=== PATIENT | female | born 1955 | race Caucasian/White ===

== ENCOUNTER 2021-04-24 11:27 | Observation (INO) ==
--- NOTE | 2021-03-25 14:48 | PAT Medication Instructions ---
Medication Instructions Date of Service March 25, 2021 Home Medications acetaminophen [Tylenol Arthritis] 650 mg PO DAILY atorvastatin [Lipitor] 40 mg PO PM escitalopram oxalate [Lexapro] 20 mg PO QAM furosemide [Lasix] 20 mg PO DAILY PRN levothyroxine 75 mcg PO QAM meloxicam 15 mg PO QAM metformin 500 mg PO BID aroneezndhop-Fs-ixuo-minerals [Multivitamin-Calcium and Iron] 1 tab PO QAM nitrofurantoin monohyd/m-cryst [Macrobid] 100 mg PO BID ropinirole [Requip] 0.5 mg PO PM turmeric 400 mg PO QAM STOP taking 2 weeks before surgery (or as soon as possible if surgery is within 2 weeks) turmeric 400 mg PO QAM DO NOT take the morning of surgery furosemide [Lasix] 20 mg PO DAILY PRN metformin 500 mg PO BID jfjsmnfqthlu-Di-fcbl-minerals [Multivitamin-Calcium and Iron] 1 tab PO QAM Take morning of surgery With a small sip of water, OTHERWISE NOTHING TO EAT OR DRINK AFTER MIDNIGHT: acetaminophen [Tylenol Arthritis] 650 mg PO DAILY(okay to take up to 4 hours prior to surgery if needed) escitalopram oxalate [Lexapro] 20 mg PO QAM levothyroxine 75 mcg PO QAM nitrofurantoin monohyd/m-cryst [Macrobid] 100 mg PO BID Take evening before surgery atorvastatin [Lipitor] 40 mg PO PM furosemide [Lasix] 20 mg PO DAILY PRN (if needed) metformin 500 mg PO BID nitrofurantoin monohyd/m-cryst [Macrobid] 100 mg PO BID ropinirole [Requip] 0.5 mg PO PM Other Notes If you have any questions please call us at [phone] or [phone] or [phone] or [phone]
--- NOTE | 2021-03-27 13:34 | Anesthesiology Consultation ---
Date of Service March 27, 2021 Assessment & Plan (1) Encounter for pre-operative examination: - COVID screening: Per assessment on 03/27: Travel screen negative, no known COVID-19 positive contacts or current COVID-19 related symptoms. Patient vaccinated. Surgeon arranging preop COVID testing. Awaiting results. - Check BSG AM DOS - S/P Right TKA (08/25/17): SAB at L3/L4 (x1 attempt) + PNB at [facility] Chart Review Chart Review: Acceptable Risk for Surgery and Patient seen in Pre Admission Testing Teaching & Discussion .npo History Surgery Operation Date: 04/24/21 07:00 Proposed Procedures p Left Total Knee Arthroplasty - Adonis Rowan MD Height/Weight Height: 5 ft 4 in Weight: 117.3 kg Allergies Allergy/AdvReac Type Severity Reaction Status Date / Time No Known Allergies Allergy Verified 03/24/21 09:50 Medications Home Medications Medication Instructions Recorded Confirmed Last Taken acetaminophen [Tylenol Arthritis] 650 mg PO DAILY 03/24/21 03/24/21 Unknown atorvastatin [Lipitor] 40 mg PO PM 03/24/21 03/24/21 Unknown escitalopram oxalate [Lexapro] 20 mg PO QAM 03/24/21 03/24/21 Unknown furosemide [Lasix] 20 mg PO DAILY PRN 03/24/21 03/24/21 Unknown levothyroxine 75 mcg PO QAM 03/24/21 03/24/21 Unknown meloxicam 15 mg PO QAM 03/24/21 03/24/21 Unknown metformin 500 mg PO BID 03/24/21 03/24/21 Unknown vcywwznsmwfy-Dg-mfzm-minerals 1 tab PO QAM 03/24/21 03/24/21 Unknown [Multivitamin-Calcium and Iron] nitrofurantoin monohyd/m-cryst 100 mg PO BID 03/24/21 03/24/21 Unknown [Macrobid] ropinirole [Requip] 0.5 mg PO PM 03/24/21 03/24/21 Unknown turmeric 400 mg PO QAM 03/24/21 03/24/21 Unknown Past Medical History Medical History (Updated 03/28/21 @ 08:28 by Jennifer Simental) Anxiety Depression Diabetes mellitus, type 2 NIDDM GERD (gastroesophageal reflux disease) Occasional Hyperlipidemia Hypothyroidism Morbid obesity Osteoarthritis Restless leg syndrome Sleep apnea CPAP (compliant) Uterine cancer s/p hysterectomy UTI (urinary tract infection) Recent Macrobid finished ~03/25 > symptoms resolved and preop UA 03/27 negative Exercise / Class Metabolic Activity II 4-5 Yardwork/Stairs/Walk up hill (one FS (no CP, no SOB)) Past Family History Family History Mother Diabetes Father Diabetes Brother Diabetes Sister Diabetes Past Surgical History Surgical History History of arthroscopy R/L knee History of colonoscopy History of hysterectomy History of tooth extraction History of total knee replacement Right TKA (08/25/17): SAB at L3/L4 (x1 attempt) + PNB at [facility] Past Anesthesia History No Hx of Anesthesia Complications and No Family Hx of Anesthesia Complications History of PONV No Hx of PONV and No Hx of Motion Sickness Social History Smoking Status: Never smoker Do You Dip or Chew Tobacco: No Hx Alcohol Use: No Hx Substance Use: No substance use type: does not use Review of Systems Patient denies chest pain, shortness of breath, dyspnea on exertion, fever, c hills, cough, wheezing, palpitations. Physical Exam Vital Signs VITALS BP 130/78 P 70 TEMP 98.9 SP02 95%RA RESP 18 PHYSICAL Full cervical extension range of motion. Full TMJ range of motion. TMD 3 finger breaths Mallampati Score 2 Dentition: missing molars, + root canal repair right lower molar Lungs: clear throughout to auscultation Cardiac: regular rate and rhythm, no murmurs noted Spine: normal Carotid arteries: negative bruit Extremities: no edema Lab Results Anesthesia Preop Results Results Anesthesia Widget: WBC 6.74 K/uL (4.8-10.8) 03/27/21 Hgb 13.4 g/dL (12.0-16.0) 03/27/21 Hct 40.1 % (37-47) 03/27/21 Plt 244 K/uL (130-400) 03/27/21 Na 141 mmol/L (136-145) 03/27/21 K 4.2 mmol/L (3.5-5.1) 03/27/21 Cl 109 mmol/L (98-107) H 03/27/21 CO2 26 mmol/L (21-32) 03/27/21 BUN 20 mg/dl (7-18) H 03/27/21 Creat 0.67 mg/dl (0.6-1.2) 03/27/21 Glucose Level 173 mg/dl (70-99) H 03/27/21 PT 9.8 Seconds (9.0-12.0) 03/27/21 PTT 24.2 Seconds (21.0-31.0) 03/27/21 INR 1.0 (0.9-1.1) 03/27/21 HA1c 6.5 % (4.5-5.6) H 03/27/21 Urine Color Yellow 03/27/21 Urine Appearance Clear (Clear) 03/27/21 Urine pH 5.0 (4.5-7.5) 03/27/21 Urine Specific Mccune 1.027 (1.000-1.030) 03/27/21 Urine Protein Negative (Negative) 03/27/21 Urine Glucose (UA) Negative (Negative) 03/27/21 Urine Ketones Trace (Negative) H 03/27/21 Urine Blood Negative (Negative) 03/27/21 Urine Nitrite Negative (Negative) 03/27/21 Urine Bilirubin Negative (Negative) 03/27/21 Urine Urobilinogen Negative (Negative) 03/27/21 Urine Leukocyte Esterase 1+ (Negative) H 03/27/21 Urine WBC (Auto) 5-10 /hpf (0-5) H 03/27/21 Urine RBC (Auto) 0-4 /hpf (0-4) 03/27/21 Urine Hyaline Casts (Auto) 1-5 /lpf (0-5) 03/27/21 Urine Epithelial Cells (Auto) >30 /lpf (0-5) H 03/27/21 Urine Bacteria (Auto) Negative (Negative) 03/27/21 Blood Type A Positive 03/27/21 Antibody Screen NEGATIVE 03/27/21 Testing Electrocardiogram Date: 03/27/21 Normal sinus rhythm at 69 bpm. Possible anterior infarct (cited on or before 07/27/2017 per 4th grade math teacher review) Chest X-Ray Date: 03/27/21 FINDINGS: The heart is borderline enlarged. There is no failure. There is no focal pulmonary consolidation. There are no pleural effusions. Degenerative changes are present within the spine.[ IMPRESSION: No active disease in the chest.
--- NOTE | 2021-04-23 20:46 | History & Physical Report ---
Date of Service April 23, 2021 Assessment & Plan (1) Primary osteoarthritis of left knee: Plan: Treatment options discussed. She has failed conservative measures. She would like to proceed with replacement. Risks, benefits and alternatives to surgery including but not limited to infection, DVT, pain, stiffness, need for revision surgery, damage to blood vessels, damage to nerves, PE, , were discussed with the patient and they wish to proceed. Plan on left total knee arthroplasty at [facility] scheduled for 04/24/21. Will plan on ASA 81mg BID x 1 mo post op, as well as HHPT post dsicharge. All questions answered. F/u post op. History of Present Illness Chief Complaint: Left knee pain Primary Care Provider: CITLALLI Trammell 65 year old female with PMHx significant for high cholesterol, anxiety, JANEL, DM2, hypothyroid, uterine Ca who presents with longstanding left knee pain. Hax hx of right knee replacement and has done well. Left knee pain interfering with her daily activities. She has failed conservative measures inlcluding anti- inflammatories and injections. She would like to proceed with knee replacement. Patient denies headaches, sweats, fevers, chills, double vision, blurred vision, cough, sore throat, dysphagia, chest pain, sob, wheezing, n/v/d/c, numbness, tingling, fatigue, urinary symptoms, mood disorders. ROS positive for left knee pain and stiffness. Allergies Allergy/AdvReac Type Severity Reaction Status Date / Time No Known Allergies Allergy Verified 03/24/21 09:50 Home Medications Medication Instructions Recorded Confirmed Type acetaminophen 650 mg 650 mg PO DAILY 03/24/21 03/24/21 History tablet,extended release atorvastatin 40 mg tablet (Lipitor) 40 mg PO PM 03/24/21 03/24/21 History escitalopram oxalate 20 mg tablet 20 mg PO QAM 03/24/21 03/24/21 History (Lexapro) furosemide 20 mg tablet (Lasix) 20 mg PO DAILY PRN 03/24/21 03/24/21 History levothyroxine 75 mcg tablet 75 mcg PO QAM 03/24/21 03/24/21 History meloxicam 15 mg tablet 15 mg PO QAM 03/24/21 03/24/21 History metformin 500 mg tablet 500 mg PO BID 03/24/21 03/24/21 History kjmhhoeajjcw-Hw-vnmi-minerals 1 tab PO QAM 03/24/21 03/24/21 History nitrofurantoin 100 mg PO BID 03/24/21 03/24/21 History monohydrate/macrocrystals 100 mg capsule (Macrobid) ropinirole 0.5 mg tablet 0.5 mg PO PM 03/24/21 03/24/21 History turmeric 400 mg capsule 400 mg PO QAM 03/24/21 03/24/21 History Past Med/Surg History Medical History (Updated 04/23/21 @ 20:45 by Dain Deluca) Anxiety Depression Diabetes mellitus, type 2 NIDDM GERD (gastroesophageal reflux disease) Occasional Hyperlipidemia Hypothyroidism Morbid obesity Osteoarthritis Restless leg syndrome Sleep apnea CPAP (compliant) Uterine cancer s/p hysterectomy UTI (urinary tract infection) Recent Macrobid finished ~03/25 > symptoms resolved and preop UA 03/27 negative Surgical History History of arthroscopy R/L knee History of colonoscopy History of hysterectomy History of tooth extraction History of total knee replacement Right TKA (08/25/17): SAB at L3/L4 (x1 attempt) + PNB at [facility] Family History Mother Diabetes Father Diabetes Brother Diabetes Sister Diabetes Social History Smoking Status: Never smoker Second Hand Exposure: No; Hx Alcohol Use: No Hx Substance Use: No Preferred Language: Maltese Communication Ability: Effective Shipwright Helper Required: No Beliefs That Will Affect Care: None Current Living Situation: Spouse Feels Safe at Home: Yes Assistive Devices: Glasses Review of Systems All systems reviewed & are unremarkable except as noted in HPI & below Physical Exam Constitutional: well developed and well nourished; no acute distress Eyes: PERRL, conjunctivae normal, anicteric sclerae ENMT: external ear and nose normal, oropharynx normal Neck: trachea midline, no thyromegaly Respiratory: normal respiratory effort, lungs clear to auscultation Cardiovascular: RRR, no murmur, no edema Musculoskeletal: Left knee: Varus alignment, mild effusion/ Tenderness diffusely with max tenderness medial joint line. Moderate crepitation. Positive Pierre's. Stable to valgus and varus stress. ROM 10-120 degrees. Skin: no rashes, warm and dry Neurologic: patellar DTR's 2+ bilat, sensation intact Psychiatric: A+Ox3, euthymic affect Results & Data ([facility]) Diagnostic Findings Left knee radiographs: X-rays of her left knee demonstrate that she has a varus knee. She has got medial subluxation of the femur on the tibia. She has tricompartmental osteophytes. She is bone on bone in the medial compartment with some bone loss on weightbearing flexion views.
[~2021-04-24 11:27] MED LIST: ACETAMINOPHEN 500 MG TAB PO SCH; BUPIVACAINE 0.5 % 5 MG/1 ML PF 10ML VIAL ONE; CeleBREX 200 MG CAP PO SCH; EPINEPHrine INJ 1 MG/ML AMP ONE; FAMOTIDINE 20 MG TAB PO SCH; GABAPENTIN 300 MG CAP PO SCH; LR 500ML BOLUS, THEN 15ML/HR IV SCH; METOCLOPRAMIDE HCL 10 MG TABLET PO SCH; ROPIVACAINE 0.5% 5 MG/ML 30 ML VIAL ONE; ROPIVACAINE 0.5% HCL/PF 150 MG, BUPIVACAINE 0.75% MPF 20 ML, EPINEPHrine 30MG/30ML (OR ... INSTIL SCH; TRANEXAMIC ACID 1,000 MG **IV Intra-op IV SCH; TRANEXAMIC ACID 1,000 MG **IV Pre-op IV SCH; ceFAZolin 2000MG 2,000 MG/15 ML SYR IV SCH
[2021-04-24] MEDS ORDERED: MIDAZOLAM HCL 1 MG/ML 2ML VIAL ONE (14:10)
[2021-04-24] MEDS ORDERED: ORTHO JOINT ANESTHETIC ONE (14:24)
--- NOTE | 2021-04-24 14:40 | History & Physical Bridge Note ---
Date of Service April 24, 2021 History & Physical Bridge Note I have examined the patient, reviewed the History & Physical and in the interval since the performance of the History & Physical I have noted the following changes of clinical significance: no changes noted
[2021-04-24] MEDS ORDERED: HYDROmorphone INJ 1 MG/ML SYRINGE IV PRN (15:09)
[2021-04-24] MEDS ORDERED: FLUMAZENIL 0.1 MG/1 ML 10 ML VIAL IV PRN (15:09)
[2021-04-24] MEDS ORDERED: PROMETHAZINE HCL 12.5 MG in SODIUM CHLORIDE 0.9% 50 ML IV PRN (15:09)
[2021-04-24] MEDS ORDERED: ATROPINE SULFATE 0.1 MG/ML 10ML SYR IV PRN (15:09)
[2021-04-24] MEDS ORDERED: NALOXONE HCL 0.4 MG/1 ML VIAL/CARP IV PRN ×2 (15:09→18:37)
[2021-04-24] MEDS ORDERED: fentaNYL citrate 100 MCG/2 ML VIAL IV PRN (15:09)
[2021-04-24] MEDS ORDERED: ePHEDrine sulfate 50 MG/ML AMP IV PRN (15:09)
[2021-04-24] MEDS ORDERED: ONDANSETRON INJ 2 MG/ML 2 ML VIAL IV PRN ×2 (15:09→18:37)
[2021-04-24] MEDS ORDERED: KETAMINE 50 MG/5 ML SYRINGE ONE (15:11)
[2021-04-24] MEDS ORDERED: LIDOCAINE 2% 2 ML VIAL/AMP(20MG/ML) INFIL ONE (15:11)
[2021-04-24] MEDS ORDERED: PROPOFOL IV EMULSION 10 MG/ML 20 ML VIAL IV ONE ×3 (15:11→16:12)
[2021-04-24] MEDS ORDERED: ONDANSETRON INJ 2 MG/ML 2 ML VIAL ONE (15:11)
[2021-04-24] MEDS ORDERED: PHENYLEPHRINE 100MCG/ML 5ML SYR ONE (16:36)
--- NOTE | 2021-04-24 17:27 | Operative Report ---
Post Operative Report Pre & Post Diagnosis Operation Date: 04/24/21 14:50 Pre-Op Diagnosis: Left knee unilateral Primary Osteoarthritis, obesity BMI 43.1 Post-Op Diagnosis: Left knee unilateral Primary Osteoarthritis, obesity BMI 43.1 I identified the patient and participated in the time-out.: Yes Procedure Operation Date: 04/24/21 14:50 Actual Procedures p Left Total Knee Arthroplasty(Left), increased difficulty BMI 43.1- Adonis Rowan MD Surgeon Adonis Rowan MD Security Representative Joshua PEÑALOZA Estimated Blood Loss 5 Findings Consistent with Post-Op Diagnosis Specimens Bone cuts Drains 2 Hemovac Anesthesia Type MAC Spinal Regional Complications none Disposition Disposition: Recovery Room Indications 65-year-old, progressive osteoarthritis left knee. Radiographs demonstrate she is hgtq-cy-dqqk medial compartment varus knee which also has moderate patellofemoral osteoarthritis. Patient has successful total knee replacement in her opposite knee in the past. Description of Procedure The patient was taken to the operating room and anesthetized under spinal MAC regional block. Patient was placed supine on the the operating table. A pneumatic tourniquet was placed about the left obese upper thigh. The knee exam demonstrated positive Elma exam no collateral instability 15 degree flexion contracture with flexion to 120 degrees. The involved leg was elevated exsanguinated with Esmarch bandage and the pneumatic tourniquet was raised to 350 millimeters mercury. A longitudinal incision was made across the anterior knee. Skin flaps were elevated. An incision was made into the medial retinaculum and extended up into the mid third of the quadriceps tendon and extended down to the tibial tubercle. Intra-articular findings demonstrated tricompartmental osteoarthritis [id number]-ba-[id number] medial compartment chronic ACL tear medial meniscus tear, advanced osteoarthritis patellofemoral joint with large patellofemoral osteophytes. The knee was exposed by excising cruciate ligaments and menisci. The infrapatellar fat pad was resected. The fat pad over the anterior femur at the upper aspect of the articular surface was resected for placement of the component in that area. A subperiosteal peel lateral release was performed around the patella The Ng [employer] Nephew journey 2.0 posterior stabilized total knee arthroplasty system was utilized for the procedure. The custom femoral cutting guide was pinned in position. The distal femoral cut was made. The size 6, 5 in 1 cutting block was placed. The anterior posterior and chamfer cuts were made. The knee was extended and a free hand cut technique was performed to the patella. The patella with was measured and the width was reproduced using a 35 symmetrical patella component. 3 drill holes are made for the patella component pegs. The tibia was then subluxed. The custom tibial cutting block was pinned in position and the proximal tibial cut was made with the oscillating saw. The preoperative plan suggested a size 4 tibia but this was downsized to a 3. The size 3 tibial trial was externally rotated in line with the tibial tubercle and pinned in position. The punch for the stem was used. The femoral trial was inserted and centered the notch cutting devices were used and the collet was placed. Some osteophytes removed in the posterior medial tibia plateau area and a large meniscus cyst was decompressed posterior medially and an abundant amount of gel material was evacuated. A medial and posterior medial release was performed to balance ligaments. Tibial trials were used for the insert. The size 11 trial gave balanced ligaments through full range of motion. Patella tracking was assessed with range of motion. The patella tracked centrally. The trials were removed. The Orthomix anesthetic cocktail was injected per protocol. The cut bone surfaces and soft tissue were copiously irrigated with pulsatile lavage saline solution. The final components were cemented with Simplex cement. The final components were Ng [employer] Nephew journey 2.0 size 6 left posterior stabilized femoral component, 3 left tibial component, size 11 polyethylene posterior stabilized insert, 35 symmetrical patella. While the cement cured the Betadine soak was used per protocol. When the cement cured the knee was copiously irrigated with pulsatile lavage saline solution. 2 drains were brought out laterally connected to Hemovac. The quadriceps tendon and medial retinaculum were closed with interrupted [id number] #1 Vicryl sutures. The knee was taken through full range of motion and repair was secure. The subcutaneous tissues were closed with 2-0 Vicryl sutures. The skin was closed with 3-0 strata fix and Dermabond and Prineo glue system. A Silverlon sterile dressing was applied. The tourniquet was let down and the patient had good capillary refill to the extremity. The patient tolerated the procedure well. My physician anesthesiologists' assistant Joshua PEÑALOZA assisted in the procedure including prepping draping leg positioning soft tissue retraction instrument management and assisted in the closure ,dressings application and will participate in postoperative care the patient. I attest to the content of the Intraoperative Record and any orders documented therein. Any exceptions are noted below.
--- NOTE | 2021-04-24 17:47 | Anesthesiology Progress Note ---
Date of Service April 24, 2021 Anesthesia Post Procedure Vital Signs Vital Signs: Temp Pulse Resp BP BP Pulse Ox 04/24/21 17:32 36.5 C 79 18 124/66 97 04/24/21 12:15 36.9 C 64 18 148/52 H 95 Pain Intensity Left Knee: Pain Intensity: 2 Transfer of Care Handoff Completed per policy Notes Mental Status: alert / awake / arousable Patient Amnestic to Procedure: Yes Nausea / Vomiting: adequately controlled Pain: adequately controlled Airway Patency, RR, SpO2: stable & adequate BP & HR: stable & adequate Hydration State: stable & adequate Neuraxial Anesthesia: was administered and sensory block is resolving Anesthetic Complications: no major complications apparent and Pt Satisfied with anesthetic care
--- NOTE | 2021-04-24 17:52 | XRay Report ---
XR knee LT 1 or 2V routine CLINICAL HISTORY: Postoperative evaluation. COMPARISON: Knee radiographs February 26, 2015. FINDINGS: Alignment of the total left knee arthroplasty is anatomic. There is no periprosthetic frac ture or unexpected radiopaque foreign body. There are surgical drains. IMPRESSION: Expected findings following total left knee arthroplasty. ACT 112: Negative or not required by law. Electronically signed by: Justo James M.D. 04/24/2021 5:51 PM
[2021-04-24] MEDS ORDERED: MAGNESIUM HYDROXIDE SUSP 30 ML UDC PO PRN (18:37)
[2021-04-24] MEDS ORDERED: METOCLOPRAMIDE HCL INJ 5 MG/ML 2 ML VIAL IV PRN (18:37)
[2021-04-24] MEDS ORDERED: FUROSEMIDE 20 MG TAB PO PRN (18:37)
[2021-04-24] MEDS ORDERED: HYDROmorphone INJ 0.5 MG/0.5 ML SYR IV PRN (18:37)
[2021-04-24] MEDS ORDERED: bisacodyL 10 MG SUPP PR PRN (18:37)
[2021-04-24] MEDS ORDERED: PHARMACY GLYCEMIC MGMT CONSULT PRN (18:37)
[2021-04-24] MEDS: SODIUM CHLORIDE 0.9% 1000ML 1,000 ML IV SCH (18:55)
--- NOTE | 2021-04-24 20:38 | Internal Medicine Consult Note ---
Date of Consultation April 24, 2021 Assessment & Plan (1) Primary osteoarthritis of left knee: (2) Right knee DJD: (3) RLS (restless legs syndrome): (4) JANEL (obstructive sleep apnea): (5) Depression: (6) Hypothyroidism: (7) Anxiety: (8) Obesity: (9) GERD (gastroesophageal reflux disease): Resume Post Op Care per Surgery Protocol CPAP Incentive Spirometry 10x per Hour Resume Relative Home Meds Where Appropriate PT/OT with appropriate fall precautions Transition to PO Pain control DVT Prophylaxis Per Surgery Protocol Monitor Daily Labs TARA jameson in am 04/25 History of Present Illness Reason for Consultation: Multiple Medical Problems Requesting Physician: Adonis Rowan MD Attending Physician: Adonis Rowan MD History of Present Illness 65-year-old female with a past medical history of diabetes, hypothyroidism, obstructive sleep apnea syndrome, degenerative disc disease, depression, uterine cancer, restless leg syndrome, obesity with a BMI of 43.1 and acid reflux disease who today had a total knee arthroplasty performed on her left knee. She started seeing Dr. Bishop back in 2013 when she had meniscal tears. In 2015 she had a right total knee arthroplasty. Her left knee was done today secondary to being [id number] she held off until she had better insurance. She had insurance through her and now she has Medicare. She had no injections no physical therapy she had increasing pain and occasionally the knee would buckle. Past medical historydiabetes, hypothyroidism, obesity with BMI 43, obstructive sleep apnea syndrome, degenerative disc disease, osteoarthritis, depression, uterine cancer, restless leg syndrome, GERD Past surgical historytotal hysterectomy, meniscal tear repair, right total knee arthroplasty Family history mother of breast cancer, father of a skin cancer, she has 1 brother with COPD and diabetes, she has 2 sisters one with breast cancer another one with multiple vague medical problems. She has no children. Socially she is , she is an [employer], currently not working, no tobacco drugs or alcohol. Allergies Allergy/AdvReac Type Severity Reaction Status Date / Time bupropion [From Wellbutrin] AdvReac Intermediate tearful/ Verified 04/24/21 12:05 crying, severe irritability Home Medications Medication Instructions Recorded Confirmed Type acetaminophen 650 mg 650 mg PO DAILY 03/24/21 04/24/21 History tablet,extended release atorvastatin 40 mg tablet (Lipitor) 40 mg PO PM 03/24/21 04/24/21 History escitalopram oxalate 20 mg tablet 20 mg PO QAM 03/24/21 04/24/21 History (Lexapro) furosemide 20 mg tablet (Lasix) 20 mg PO DAILY PRN 03/24/21 04/24/21 History levothyroxine 75 mcg tablet 75 mcg PO QAM 03/24/21 04/24/21 History meloxicam 15 mg tablet 15 mg PO QAM 03/24/21 04/24/21 History metformin 500 mg tablet 500 mg PO BID 03/24/21 04/24/21 History ymcviehhctpn-Uu-iqqu-minerals 1 tab PO QAM 03/24/21 04/24/21 History ropinirole 0.5 mg tablet 0.5 mg PO PM 03/24/21 04/24/21 History turmeric 400 mg capsule 400 mg PO QAM 03/24/21 04/24/21 History Calcium 600 + D(3) 1 tab PO QAM 04/24/21 04/24/21 History Patient History Medical History Anxiety Depression Diabetes mellitus, type 2 NIDDM GERD (gastroesophageal reflux disease) Occasional Hyperlipidemia Hypothyroidism Morbid obesity Osteoarthritis Restless leg syndrome Sleep apnea CPAP (compliant) Uterine cancer s/p hysterectomy UTI (urinary tract infection) Recent Macrobid finished ~03/25 > symptoms resolved and preop UA 03/27 negative Surgical History History of arthroscopy R/L knee History of colonoscopy History of hysterectomy History of tooth extraction History of total knee replacement Right TKA (08/25/17): SAB at L3/L4 (x1 attempt) + PNB at [facility] Family History Mother Diabetes Father Diabetes Brother Diabetes Sister Diabetes Social History Smoking Status: Never smoker Second Hand Exposure: No; Do You Dip or Chew Tobacco: No; Tobacco Cessation Education Requested by Patient: No Hx Alcohol Use: No Hx Substance Use: No Preferred Language: [place]an Communication Ability: Effective Lens Coater Required: No Beliefs That Will Affect Care: None Current Living Situation: Spouse Other Information That Helps Us Care for You: No Feels Safe at Home: Yes Safety Concerns: Feels Safe At This Time Assistive Devices: Glasses Review of Systems Review of Systems: ROS-No Headache, No Visual Changes, No Nausea, No Vomiting, No Fever, No Chills, No Neck Pain or Stiffness, No Chest Pain, No Palpitations, No SOB, No IQBAL, No Cough, No Sputum, No Wheezing, No Abdominal Pain, No Diarrhea, No Hematemesis, No Hemoptysis, No Unexpected Weight Loss, No Flank pain, No Melena, No Hematochezia, No Frequency, No Urgency, No Burning, No Hematuria, No Rashes, No Diaphoresis. Appetite is Normal, Sore L Knee Physical Exam Physical Exam: Physical Exam Gen-AAO x 3, NAD, Afebrile, Obese Head-NCAT, EOMI, PERRLA, Anicteric Sclera, No Posterior Pharyngeal Erythema Neck-Supple, No JVD, No Thyromegaly, No Masses, No LAD, No Bruits Lungs-Clear to Auscultation Bilaterally, No Rales, No Rhonchi, No Wheezing, No Crepitus Chest-No S4, +S1, +S2, No S3, No Murmurs, No Rubs, No Gallops, No Ectopy Abdomen-Soft, Bowel Sounds Present, Obese, Non Tender, Non Distended, No Hepatomegaly, No Splenomegaly, No Palpable Masses, No Rebound, No Rigidity, No Guarding Musculoskeletal-Full Range of Motion x 3, L knee not assessed, No CVAT Extremities-No Cyanosis, No Clubbing, L Knee Iced, +SCDs Nuero-Cranial Nerves II-XII grossly intact, Motor WNL, DTRs WNL, Strength WNL, Non Focal Psych-Normal Mood Results & Data ([facility]) Vital Signs (Past 12 Hours) Vital Signs Temp Pulse Resp BP BP Pulse Ox 04/24/21 19:15 36.6 C 61 18 124/74 95 04/24/21 18:20 36.9 C 66 18 110/68 97 04/24/21 18:10 69 16 113/61 94 04/24/21 18:00 36.3 C L 65 16 118/53 L 94 04/24/21 17:50 70 24 122/63 94 04/24/21 17:40 72 20 124/63 96 07/29/21 17:32 36.5 C 79 18 124/66 97 04/24/21 12:15 36.9 C 64 18 148/52 H 95 Laboratory Results Current Diagnoses Unilateral primary osteoarthritis, left knee (04/24/21) Encounter for other preprocedural examination (04/24/21) Allergies bupropion [From Wellbutrin] Adverse Reaction (Intermediate, Verified 04/24/21 12:05) tearful/ crying, severe irritability Height/Weight/Isolation Height 5 ft 4 in Weight 114 kg
[2021-04-24] MEDS: ASPIRIN 81 MG ECTAB PO SCH (20:44)
[2021-04-24] MEDS: ATORVASTATIN 40 MG TAB PO SCH (20:45)
[2021-04-24] MEDS: CeleBREX 200 MG CAP PO SCH (20:45)
[2021-04-24] MEDS: DOCUSATE SODIUM 100 MG CAP PO SCH (20:45)
[2021-04-24] MEDS: SENNA 8.6 MG TAB PO SCH (20:46)
[2021-04-24] MEDS: rOPINIRole HCL 0.25 MG TABLET PO SCH (20:46)
[2021-04-24] MEDS: INSULIN ASPART 100 UNITS/ML 3 ML PEN SC SCH (20:47)
[2021-04-24] MEDS: ACETAMINOPHEN 500 MG TAB PO SCH (22:30)
[2021-04-24] MEDS: ceFAZolin 2000MG 2,000 MG/15 ML SYR IV SCH (22:31)
[2021-04-24] MEDS: oxyCODONE HCL IR 5 MG TAB (IMMEDIATE RELEASE) PO PRN (22:32)
[2021-04-25] MEDS ORDERED: INSULIN ASPART 100 UNITS/ML 3 ML PEN SC SCH
[2021-04-25] MEDS: oxyCODONE HCL IR 5 MG TAB (IMMEDIATE RELEASE) PO PRN ×5 (04:24→17:26)
[2021-04-25] MEDS: ACETAMINOPHEN 500 MG TAB PO SCH ×3 (05:09→21:24)
[2021-04-25] MEDS: SODIUM CHLORIDE 0.9% 1000ML 1,000 ML IV SCH (05:10)
[2021-04-25] MEDS: LEVOTHYROXINE SODIUM 75 MCG TABLET PO SCH (05:10)
[2021-04-25 06:39] LABS: Hematocrit (blood only) 36.1 % (37-47); Hemoglobin 11.7 g/dL (12.0-16.0); Mean Corpuscular Hemoglobin 30.5 pg (25-34); Mean Corpuscular Hgb Conc 32.4 g/dL (32-36); Mean Platelet Volume 9.4 fL (7.4-10.4); Platelet Count 228 K/uL (130-400); RDW Coefficient of Variation 13.6 % (11.5-14.5); RDW Standard Deviation 46.8 fL (36.4-46.3); Red Blood Count 3.84 M/uL (4.2-5.4); White Blood Count 9.16 K/uL (4.8-10.8)
[2021-04-25 07:05] LABS: BUN Creatinine Ratio 25.2 (10-20); Calcium 8.2 mg/dl (8.5-10.1); Creatinine Clr Calc Pharmacy 102.1 ml/min; Est GFR (African American) 106.4 ml/min; Est GFR (Non-African American) 91.8 ml/min; Potassium 4.3 mmol/L (3.5-5.1)
[2021-04-25] MEDS ORDERED: KETOROLAC TROMETHAMINE 15 MG/ML VIAL IV ONE (07:28)
--- NOTE | 2021-04-25 07:31 | Orthopedic Progress Note ---
Date of Service April 25, 2021 Assessment & Plan (1) Status post total knee replacement, left: Plan: POD#1 Left TKA -PT/OT -Pain management as written -DVT prophylaxis-SCDs, TEDs, ASA 81mg BID -Am labs-hemogobin at 11.7 from 13.4 this morning due to surgical loss/dil utional effect -D/C planning-home with home health PT when stable and pain better controlled, discharge likey tomorrow Admission and Anticipated Discharge Date Admission Date: April 24, 2021 Subjective POD#1 left TKA. Patient having lot of pain in knee, states having more pain this time than with her other knee replacement. No other complaints, denies chest pain, sob, dizziness, fever, chills, n/v/d Review of Systems Review of Systems: All systems reviewed & are unremarkable except as noted in Subjective Physical Exam Physical Exam: Dressing to left knee is c/d/i, hemovac in place. No calf tenderness. Toes mobile with good dorsiflexion. Distally n/v status and sensation intact. Able to do a SLR Constitutional: well developed and well nourished; no acute distress Results & Data ([facility]) Vital Signs (Past 12 Hours) Vital Signs Temp Pulse Resp BP Pulse Ox 04/25/21 04:01 36.8 C 59 L 18 111/70 95 04/24/21 21:32 36.7 C 61 18 120/73 93 04/24/21 20:25 36.5 C 60 14 105/67 97 Laboratory Results Lab Results 04/24/21 04/24/21 04/24/21 Range/Units 11:56 11:56 11:58 WBC (4.8-10.8) K/uL RBC (4.2-5.4) M/uL Hgb (12.0-16.0) g/dL Hct (37-47) % MCV (80-100) fL MCH (25-34) pg MCHC (32-36) g/dL RDW Std Deviation (36.4-46.3) fL RDW Coeff of Sue (11.5-14.5) % Plt Count (130-400) K/uL MPV (7.4-10.4) fL Sodium (136-145) mmol/L Potassium (3.5-5.1) mmol/L Chloride (98-107) mmol/L Carbon Dioxide (21-32) mmol/L Anion Gap (3-11) BUN (7-18) mg/dl Creatinine (0.6-1.2) mg/dl Est Cr Clr Drug Dosing ml/min Est GFR ( Amer) ml/min Est GFR (Non-Af Amer) ml/min BUN/Creatinine Ratio (10-20) Glucose (70-99) mg/dl POC Glucose 122 H (70-99) mg/dl Calcium (8.5-10.1) mg/dl COVID-19 Eval [facility] SARS-CoV-2, RNA, NAAT NEGATIVE (NEGATIVE) 04/24/21 04/24/21 04/24/21 Range/Units 17:34 19:51 23:55 WBC (4.8-10.8) K/uL RBC (4.2-5.4) M/uL Hgb (12.0-16.0) g/dL Hct (37-47) % MCV (80-100) fL MCH (25-34) pg MCHC (32-36) g/dL RDW Std Deviation (36.4-46.3) fL RDW Coeff of Sue (11.5-14.5) % Plt Count (130-400) K/uL MPV (7.4-10.4) fL Sodium (136-145) mmol/L Potassium (3.5-5.1) mmol/L Chloride (98-107) mmol/L Carbon Dioxide (21-32) mmol/L Anion Gap (3-11) BUN (7-18) mg/dl Creatinine (0.6-1.2) mg/dl Est Cr Clr Drug Dosing ml/min Est GFR ( Amer) ml/min Est GFR (Non-Af Amer) ml/min BUN/Creatinine Ratio (10-20) Glucose (70-99) mg/dl POC Glucose 102 H 134 H 126 H (70-99) mg/dl Calcium (8.5-10.1) mg/dl COVID-19 Eval Order SARS-CoV-2, RNA, NAAT (NEGATIVE) 04/25/21 04/25/21 Range/Units 05:37 05:37 WBC 9.16 (4.8-10.8) K/uL RBC 3.84 L (4.2-5.4) M/uL Hgb 11.7 L (12.0-16.0) g/dL Hct 36.1 L (37-47) % MCV 94.0 (80-100) fL MCH 30.5 (25-34) pg MCHC 32.4 (32-36) g/dL RDW Std Deviation 46.8 H (36.4-46.3) fL RDW Coeff of Sue 13.6 (11.5-14.5) % Plt Count 228 (130-400) K/uL MPV 9.4 (7.4-10.4) fL Sodium 140 (136-145) mmol/L Potassium 4.3 (3.5-5.1) mmol/L Chloride 108 H (98-107) mmol/L Carbon Dioxide 29 (21-32) mmol/L Anion Gap 3.0 (3-11) BUN 17 (7-18) mg/dl Creatinine 0.68 (0.6-1.2) mg/dl Est Cr Clr Drug Dosing 102.1 ml/min Est GFR ( Amer) 106.4 ml/min Est GFR (Non-Af Amer) 91.8 ml/min BUN/Creatinine Ratio 25.2 H (10-20) Glucose 149 H (70-99) mg/dl POC Glucose (70-99) mg/dl Calcium 8.2 L (8.5-10.1) mg/dl COVID-19 Eval Order SARS-CoV-2, RNA, NAAT (NEGATIVE)
[2021-04-25] MEDS: ceFAZolin 2000MG 2,000 MG/15 ML SYR IV SCH (08:06)
[2021-04-25] MEDS: ASPIRIN 81 MG ECTAB PO SCH ×2 (08:07→21:22)
[2021-04-25] MEDS: ESCITALOPRAM OXALATE 20 MG TAB PO SCH (08:07)
[2021-04-25] MEDS: MULTIVITAMIN TAB PO SCH (08:07)
[2021-04-25] MEDS: DOCUSATE SODIUM 100 MG CAP PO SCH ×2 (08:07→21:23)
[2021-04-25] MEDS: CeleBREX 200 MG CAP PO SCH ×2 (08:08→21:23)
[2021-04-25] MEDS: CALCIUM 600MG + VIT D 400 IU TAB PO SCH (08:08)
[2021-04-25] MEDS: INSULIN ASPART 100 UNITS/ML 3 ML PEN SC SCH ×4 (08:47→21:25)
[2021-04-25] MEDS ORDERED: MULTIVITAMIN CA IRON MINERALS PO SCH (09:00)
--- NOTE | 2021-04-25 14:08 | Pharmacy Report ---
Pharmacy Glycemic Short Note 2 - Date of Service April 25, 2021 - Glycemic Short BSG Results (Last 24 hours): 04/24/21 04/24/21 04/24/21 17:34 19:51 23:55 Glucose POC Glucose 102 H 134 H 126 H 04/25/21 04/25/21 04/25/21 05:37 07:52 12:09 Glucose 149 H POC Glucose 145 H 153 H OUTPATIENT ANTIDIABETIC REGIMEN: * Metformin 500 mg QAM, 1000 mg with dinner ASSESSMENT: * 65 y/o F admitted for L TKA yesterday. PMH significant for Type 2 diabetes managed at home on oral Metformin * Metformin was held yesterday since oral agents are not recommended for inpatient use d/t drug interactions, changing PO intake, and difficulty titrating for acute hyper/hypoglycemia. ADA recommends re-initiating outpatient oral agents 1-2 days prior to discharge if/when appropriate if they were held on admission. * Weight based insulin dosing was initiated yesterday and titrated based on BSG trends. * Pt received 4 units of bolus insulin total yesterday. * Fasting BSG today was 145 mg/dl. Novolog CF was tightened slightly this AM. * Patient has been her meals and renal function stable. Therefore, oral Metformin resumed with evening meal tonight. * Spoke to pt over the phone. She said she takes 1000 mg with evening meal and 500 mg in the morning. She was supposed to take 1000 mg BID but had diarrhea on the higher dose. * Changed Metformin to the extended release (ER) form for better GI tolerance. PLAN FOR INPATIENT GLYCEMIC CONTROL: * Metformin ER 500 mg QAM, ER 1000 mg daily with dinner. * Basal insulin * none * Bolus insulin: tightened CF and removed CR with Metformin resumption * NovoLog per scale ACHS or Q6hrs while NPO * Goal Range: Low 110 mg/dL - High 140 mg/dL * Correction Factor: 25 mg/dL/unit * Nutritional / Prandial insulin per carb ratio of 1 unit per __ grams CHO consumed PLAN FOR DISCHARGE: * HbA1c = 6.5% * Goal A1c is less than 7%, so this shows adequate control of diabetes. * Resume Metformin on discharge. Patient reported diarrhea from higher dose of 1000 mg. * Recommend switch to the ER formulation of Metformin for better GI tolerance. * Metformin ER 500 mg daily with breakfast and ER 1000 mg daily with dinner.
[2021-04-25] MEDS ORDERED: COUGH DROP (SUGAR FREE) LOZ 24 LOZ/1 BOX BUCCAL PRN (14:15)
[2021-04-25] MEDS ORDERED: metFORMIN HCL ER 500 MG TABCR PO SCH (16:30)
--- NOTE | 2021-04-25 16:30 | Hospitalist Progress Note ---
Date of Service April 25, 2021 Assessment & Plan (1) Primary osteoarthritis of left knee: Plan: S/P left total knee arthroplasty by Dr. Rowan POD #1 Postoperative blood loss anemia, partly dilutional No indication for blood transfusion currently Monitor CBC Continue incentive spirometry PT OT Pain control On aspirin twice daily for DVT prophylaxis Continue bowel regimen to prevent constipation Hypothyroidism Continue levothyroxine Hyperlipidemia Continue Lipitor Mood disorder Continue home medications DM II Hold Metformin while hospitalized Continue insulin therapy Monitor BGs Restless leg syndrome Continue ropinirole DVT Px: As per Primary Team CODE STATUS Full code (2) Right knee DJD: (3) RLS (restless legs syndrome): (4) JANEL (obstructive sleep apnea): (5) Depression: (6) Hypothyroidism: (7) Anxiety: (8) Obesity: (9) GERD (gastroesophageal reflux disease): Plan: Resume Post Op Care per Surgery Protocol CPAP Incentive Spirometry 10x per Hour Resume Relative Home Meds Where Appropriate PT/OT with appropriate fall precautions Transition to PO Pain control DVT Prophylaxis Per Surgery Protocol Monitor Daily Labs TARA jameson in am 04/25 Admission and Anticipated Discharge Date Admission Date: April 24, 2021 Subjective Patient is seen and examined bedside Reports knee pain at surgical site is controlled Had physical therapy earlier today + Flatus no BM yet Denies chest pain, dyspnea, dizziness, nausea, abd pain Review of Systems Review of Systems: All systems reviewed & are unremarkable except as noted in Subjective Physical Exam Physical Exam: Physical Exam: Vitals signs as noted above General Appearance:Obese, no apparent distress Head: normocephalic, Atraumatic Eyes: normal inspection, EOMI Neck: supple, Trachea midline Respiratory/Chest: Normal breath sounds, CTA, No accessory muscle use Cardiovascular: S1, S2, No murmur Abdomen/GI:Soft, Non tender, Bowel sounds present Extremities/Musculoskeletal:normal inspection, Left knee surgical site in dressing Neurologic/Psych:AAOX3, grossly no focal neurological deficits Skin: normal color, warm Results & Data Results & Data ([facility]) Vital Signs (Past 12 Hours) Vital Signs Temp Pulse Resp BP Pulse Ox 04/25/21 11:01 36.5 C 70 16 108/65 91 04/25/21 08:25 37.1 C 59 L 16 126/70 96 Laboratory Results Short CBC 04/25/21 Range/Units 05:37 WBC 9.16 (4.8-10.8) K/uL Hgb 11.7 L (12.0-16.0) g/dL Hct 36.1 L (37-47) % Plt Count 228 (130-400) K/uL [facility] 04/25/21 05:37 Sodium 140 Potassium 4.3 Chloride 108 H Carbon Dioxide 29 BUN 17 Creatinine 0.68 Glucose 149 H Calcium 8.2 L
[2021-04-25] MEDS: ATORVASTATIN 40 MG TAB PO SCH (21:23)
[2021-04-25] MEDS: SENNA 8.6 MG TAB PO SCH (21:24)
[2021-04-25] MEDS: rOPINIRole HCL 0.25 MG TABLET PO SCH (21:24)
[2021-04-25 23:11] VITALS: TEMP 98.2; O2SAT 93
[2021-04-26] MEDS: oxyCODONE HCL IR 5 MG TAB (IMMEDIATE RELEASE) PO PRN ×3 (01:27→12:27)
[2021-04-26] MEDS: ACETAMINOPHEN 500 MG TAB PO SCH (05:43)
[2021-04-26] MEDS: LEVOTHYROXINE SODIUM 75 MCG TABLET PO SCH (05:43)
[2021-04-26 06:39] VITALS: BP 137/81; PULSE 62
[2021-04-26 06:47] LABS: Hematocrit (blood only) 33.6 % (37-47); Mean Corpuscular Hemoglobin 30.3 pg (25-34); Mean Corpuscular Hgb Conc 32.7 g/dL (32-36); Mean Corpuscular Volume 92.6 fL (80-100); Mean Platelet Volume 9.2 fL (7.4-10.4); Platelet Count 196 K/uL (130-400); RDW Coefficient of Variation 13.4 % (11.5-14.5); RDW Standard Deviation 45.9 fL (36.4-46.3); Red Blood Count 3.63 M/uL (4.2-5.4)
[2021-04-26 07:15] LABS: BUN Creatinine Ratio 24.7 (10-20); Calcium 8.4 mg/dl (8.5-10.1); Creatinine Clr Calc Pharmacy 147.7 ml/min; Est GFR (African American) 120.1 ml/min; Est GFR (Non-African American) 103.7 ml/min; Potassium 3.9 mmol/L (3.5-5.1)
[2021-04-26] MEDS ORDERED: metFORMIN HCL ER 500 MG TABCR PO SCH (07:30)
[2021-04-26] MEDS: INSULIN ASPART 100 UNITS/ML 3 ML PEN SC SCH (08:06)
[2021-04-26] MEDS: CALCIUM 600MG + VIT D 400 IU TAB PO SCH (08:11)
[2021-04-26] MEDS: CeleBREX 200 MG CAP PO SCH (08:11)
[2021-04-26] MEDS: DOCUSATE SODIUM 100 MG CAP PO SCH (08:11)
[2021-04-26] MEDS: ASPIRIN 81 MG ECTAB PO SCH (08:11)
[2021-04-26] MEDS: ESCITALOPRAM OXALATE 20 MG TAB PO SCH (08:11)
[2021-04-26] MEDS: MULTIVITAMIN TAB PO SCH (08:12)
--- NOTE | 2021-04-26 10:35 | Pharmacy Report ---
Pharmacy Glycemic Short Note 2 - Date of Service April 26, 2021 - Glycemic Short BSG Results (Last 24 hours): 04/25/21 04/25/21 04/25/21 12:09 17:00 20:36 Glucose POC Glucose 153 H 135 H 190 H 04/26/21 04/26/21 06:05 06:37 Glucose 156 H POC Glucose 158 H OUTPATIENT ANTIDIABETIC REGIMEN: * Metformin 500 mg QAM, 1000 mg with dinner ASSESSMENT: 04/26/2021 * BSGs yesterday were [phone] mg/dL. Fasting today is 158 mg/dL. * Post-prandially BSGs increased after carbohydrate removed. * Reinstate carbohydrate ratio. BACKGROUND * 65 y/o F admitted for L TKA yesterday. PMH significant for Type 2 diabetes managed at home on oral Metformin * Metformin was held yesterday since oral agents are not recommended for inpatient use d/t drug interactions, changing PO intake, and difficulty titrating for acute hyper/hypoglycemia. ADA recommends re-initiating outpatient oral agents 1-2 days prior to discharge if/when appropriate if they were held on admission. * Weight based insulin dosing was initiated yesterday and titrated based on BSG trends. * Pt received 4 units of bolus insulin total yesterday. * Fasting BSG today was 145 mg/dl. Novolog CF was tightened slightly this AM. * Patient has been her meals and renal function stable. Therefore, oral Metformin resumed with evening meal tonight. * Spoke to pt over the phone. She said she takes 1000 mg with evening meal and 500 mg in the morning. She was supposed to take 1000 mg BID but had diarrhea on the higher dose. * Changed Metformin to the extended release (ER) form for better GI tolerance. PLAN FOR INPATIENT GLYCEMIC CONTROL: * Metformin ER 500 mg QAM, ER 1000 mg daily with dinner. * Basal insulin * none * Bolus insulin: tightened CF and removed CR with Metformin resumption * NovoLog per scale ACHS or Q6hrs while NPO * Goal Range: Low 110 mg/dL - High 140 mg/dL * Correction Factor: 25 mg/dL/unit * Nutritional / Prandial insulin per carb ratio of 1 unit per 8 grams CHO consumed PLAN FOR DISCHARGE: * HbA1c = 6.5% * Goal A1c is less than 7%, so this shows adequate control of diabetes. * Resume Metformin on discharge. Patient reported diarrhea from higher dose of 1000 mg. * Recommend switch to the ER formulation of Metformin for better GI tolerance. * Metformin ER 500 mg daily with breakfast and ER 1000 mg daily with dinner.
--- NOTE | 2021-04-26 11:23 | Orthopedic Progress Note ---
Date of Service April 26, 2021 Assessment & Plan (1) Status post total knee replacement, left: Plan: POD#2 Left TKA -PT/OT -Pain management as written -DVT prophylaxis-SCDs, TEDs, ASA 81mg BID -D/C planning-home with home health PT today Admission and Anticipated Discharge Date Admission Date: April 24, 2021 Subjective Patient is seen and examined bedside Reports knee pain at surgical site is controlled just finishing breakfast Denies chest pain, dyspnea, dizziness, nausea, abd pain Physical Exam Physical Exam: Dressing to left knee is c/d/i. No calf tenderness. Toes mobile with good dorsiflexion. Distally n/v status and sensation intact. Able to do a SLR Results & Data ([facility]) Vital Signs (Past 12 Hours) Vital Signs Temp Pulse Resp BP Pulse Ox 04/26/21 06:39 36.8 C 62 18 137/81 93
--- NOTE | 2021-04-26 17:36 | Hospitalist Progress Note ---
Date of Service April 26, 2021 Assessment & Plan (1) Primary osteoarthritis of left knee: Plan: S/P left total knee arthroplasty by Dr. Rowan POD #2 Postoperative blood loss anemia, partly dilutional No indication for blood transfusion currently Monitor CBC Continue incentive spirometry PT OT Pain control On aspirin twice daily for DVT prophylaxis Continue bowel regimen to prevent constipation Advised to follow with PCP in 1 week upon discharge Continue bowel regimen upon discharge Hypothyroidism Continue levothyroxine Hyperlipidemia Continue Lipitor Mood disorder Continue home medications DM II Hold Metformin while hospitalized Continue insulin therapy Monitor BGs Restless leg syndrome Continue ropinirole DVT Px: As per Primary Team CODE STATUS Full code (2) Right knee DJD: (3) RLS (restless legs syndrome): (4) JANEL (obstructive sleep apnea): (5) Depression: (6) Hypothyroidism: (7) Anxiety: (8) Obesity: (9) GERD (gastroesophageal reflux disease): Plan: Resume Post Op Care per Surgery Protocol CPAP Incentive Spirometry 10x per Hour Resume Relative Home Meds Where Appropriate PT/OT with appropriate fall precautions Transition to PO Pain control DVT Prophylaxis Per Surgery Protocol Monitor Daily Labs TARA jameson in am 04/25 Admission and Anticipated Discharge Date Admission Date: April 24, 2021 Subjective Patient is seen and examined bedside Doing much better today Leg pain is controlled Sitting in chair comfortably Plan to be discharged home today Denies chest pain, dyspnea, dizziness, nausea, abd pain Review of Systems Review of Systems: All systems reviewed & are unremarkable except as noted in Subjective Physical Exam Physical Exam: Physical Exam: Vitals signs as noted above General Appearance:Obese, no apparent distress Head: normocephalic, Atraumatic Eyes: normal inspection, EOMI Neck: supple, Trachea midline Respiratory/Chest: Normal breath sounds, CTA, No accessory muscle use Cardiovascular: S1, S2, No murmur Abdomen/GI:Soft, Non tender, Bowel sounds present Extremities/Musculoskeletal:normal inspection, Left knee surgical site in dressing Neurologic/Psych:AAOX3, grossly no focal neurological deficits Skin: normal color, warm Results & Data Results & Data ([facility]) Vital Signs (Past 12 Hours) Vital Signs Temp Pulse Resp BP Pulse Ox 04/26/21 11:32 36.8 C 62 18 137/81 93 04/26/21 06:39 36.8 C 62 18 137/81 93 Laboratory Results Short CBC 04/26/21 Range/Units 06:05 WBC 7.60 (4.8-10.8) K/uL Hgb 11.0 L (12.0-16.0) g/dL Hct 33.6 L (37-47) % Plt Count 196 (130-400) K/uL BMP 04/26/21 06:05 Sodium 138 Potassium 3.9 Chloride 106 Carbon Dioxide 28 BUN 12 Creatinine 0.47 L Glucose 156 H Calcium 8.4 L
--- NOTE | 2021-04-26 22:08 | Discharge Summary ---
Date of Service April 26, 2021 Admission HPI Per Admitting Provider 65 year old female with PMHx significant for high cholesterol, anxiety, JANEL, DM2, hypothyroid, uterine Ca who presents with longstanding left knee pain. Hax hx of right knee replacement and has done well. Left knee pain interfering with her daily activities. She has failed conservative measures inlcluding anti- inflammatories and injections. She would like to proceed with knee replacement. Patient denies headaches, sweats, fevers, chills, double vision, blurred vision, cough, sore throat, dysphagia, chest pain, sob, wheezing, n/v/d/c, numbness, tingling, fatigue, urinary symptoms, mood disorders. ROS positive for left knee pain and stiffness. Admission Exam Per Admitting Provider Constitutional: well developed and well nourished; no acute distress Eyes: PERRL, conjunctivae normal, anicteric sclerae ENMT: external ear and nose normal, oropharynx normal Neck: trachea midline, no thyromegaly Respiratory: normal respiratory effort, lungs clear to auscultation Cardiovascular: RRR, no murmur, no edema Musculoskeletal: Left knee: Varus alignment, mild effusion/ Tenderness diffusely with max tenderness medial joint line. Moderate crepitation. Positive Pierre's. Stable to valgus and varus stress. ROM 10-120 degrees. Skin: no rashes, warm and dry Neurologic: patellar DTR's 2+ bilat, sensation intact Psychiatric: A+Ox3, euthymic affect Principal Diagnosis Left knee osteoarthritis Discharge Exam Constitutional well developed and well nourished; no acute distress Eyes PERRL, conjunctivae normal, anicteric sclerae ENMT external ear and nose normal, oropharynx normal Neck trachea midline, no thyromegaly Respiratory normal respiratory effort, lungs clear to auscultation Cardiovascular RRR, no murmur, no edema Skin no rashes, warm and dry Neurologic patellar DTR's 2+ bilat, sensation intact Psychiatric A+Ox3, euthymic affect Discharge Data Allergies Allergy/AdvReac Type Severity Reaction Status Date / Time bupropion [From Wellbutrin] AdvReac Intermediate tearful/ Verified 04/24/21 12:05 crying, severe irritability Consultations 04/21/21 17:40 Consult Hospitalist Routine Procedures Performed Operation Date: 04/24/21 14:50 Actual Procedures p Left Total Knee Arthroplasty(Left) - Adonis Rowan MD Ordered Studies 04/24/21 05:00 US - OR guided needle placemen Routine Hospital Course (1) Status post total knee replacement, left: Patient presented for same day admission following left total knee arthrop lasty on 04/24/21. She tolerated procedure well. The Patient had an uneventful hospital course. Post-operatively, her activity was progressed and well tolerated. They participated in PT with ambulation distance of 290 feet. ROM of operative knee reached 77 degrees. Labs remained stable- lowest hemoglobin recorded: 11.0. Dr. Min Wong of medical service was consulted for medical management during admission. Pain controlled on oral medications. Please refer to daily progress notes and PT notes for complete details. After exam on 04/26/21, patient was felt to be stable for discharge home with home health PT. Patient will f/u in the office in about 2 weeks for further evaluation including x-rays and incision check, sooner if having any issues or concerns. POD#2 Left TKA -PT/OT -Pain management as written -DVT prophylaxis-SCDs, TEDs, ASA 81mg BID -D/C planning-home with home health PT today Lab Results 04/24/21 04/24/21 04/24/21 Range/Units 11:56 11:56 11:58 WBC (4.8-10.8) K/uL RBC (4.2-5.4) M/uL Hgb (12.0-16.0) g/dL Hct (37-47) % MCV (80-100) fL MCH (25-34) pg MCHC (32-36) g/dL RDW Std Deviation (36.4-46.3) fL RDW Coeff of Sue (11.5-14.5) % Plt Count (130-400) K/uL MPV (7.4-10.4) fL Sodium (136-145) mmol/L Potassium (3.5-5.1) mmol/L Chloride (98-107) mmol/L Carbon Dioxide (21-32) mmol/L Anion Gap (3-11) BUN (7-18) mg/dl Creatinine (0.6-1.2) mg/dl Est Cr Clr Drug Dosing ml/min Est GFR ( Amer) ml/min Est GFR (Non-Af Amer) ml/min BUN/Creatinine Ratio (10-20) Glucose (70-99) mg/dl POC Glucose 122 H (70-99) mg/dl Calcium (8.5-10.1) mg/dl COVID-19 Eval Order Covid19 [facility] SARS-CoV-2, RNA, NAAT NEGATIVE (NEGATIVE) 04/24/21 04/24/21 04/24/21 Range/Units 17:34 19:51 23:55 WBC (4.8-10.8) K/uL RBC (4.2-5.4) M/uL Hgb (12.0-16.0) g/dL Hct (37-47) % MCV (80-100) fL MCH (25-34) pg MCHC (32-36) g/dL RDW Std Deviation (36.4-46.3) fL RDW Coeff of Sue (11.5-14.5) % Plt Count (130-400) K/uL MPV (7.4-10.4) fL Sodium (136-145) mmol/L Potassium (3.5-5.1) mmol/L Chloride (98-107) mmol/L Carbon Dioxide (21-32) mmol/L Anion Gap (3-11) BUN (7-18) mg/dl Creatinine (0.6-1.2) mg/dl Est Cr Clr Drug Dosing ml/min Est GFR ( Amer) ml/min Est GFR (Non-Af Amer) ml/min BUN/Creatinine Ratio (10-20) Glucose (70-99) mg/dl POC Glucose 102 H 134 H 126 H (70-99) mg/dl Calcium (8.5-10.1) mg/dl COVID-19 Eval Order SARS-CoV-2, RNA, NAAT (NEGATIVE) 04/25/21 04/25/21 04/25/21 Range/Units 05:37 05:37 07:52 WBC 9.16 (4.8-10.8) K/uL RBC 3.84 L (4.2-5.4) M/uL Hgb 11.7 L (12.0-16.0) g/dL Hct 36.1 L (37-47) % MCV 94.0 (80-100) fL MCH 30.5 (25-34) pg MCHC 32.4 (32-36) g/dL RDW Std Deviation 46.8 H (36.4-46.3) fL RDW Coeff of Sue 13.6 (11.5-14.5) % Plt Count 228 (130-400) K/uL MPV 9.4 (7.4-10.4) fL Sodium 140 (136-145) mmol/L Potassium 4.3 (3.5-5.1) mmol/L Chloride 108 H (98-107) mmol/L Carbon Dioxide 29 (21-32) mmol/L Anion Gap 3.0 (3-11) BUN 17 (7-18) mg/dl Creatinine 0.68 (0.6-1.2) mg/dl Est Cr Clr Drug Dosing 102.1 ml/min Est GFR ( Amer) 106.4 ml/min Est GFR (Non-Af Amer) 91.8 ml/min BUN/Creatinine Ratio 25.2 H (10-20) Glucose 149 H (70-99) mg/dl POC Glucose 145 H (70-99) mg/dl Calcium 8.2 L (8.5-10.1) mg/dl COVID-19 Eval Order SARS-CoV-2, RNA, NAAT (NEGATIVE) 04/25/21 04/25/21 04/25/21 Range/Units 12:09 17:00 20:36 WBC (4.8-10.8) K/uL RBC (4.2-5.4) M/uL Hgb (12.0-16.0) g/dL Hct (37-47) % MCV (80-100) fL MCH (25-34) pg MCHC (32-36) g/dL RDW Std Deviation (36.4-46.3) fL RDW Coeff of Sue (11.5-14.5) % Plt Count (130-400) K/uL MPV (7.4-10.4) fL Sodium (136-145) mmol/L Potassium (3.5-5.1) mmol/L Chloride (98-107) mmol/L Carbon Dioxide (21-32) mmol/L Anion Gap (3-11) BUN (7-18) mg/dl Creatinine (0.6-1.2) mg/dl Est Cr Clr Drug Dosing ml/min Est GFR ( Amer) ml/min Est GFR (Non-Af Amer) ml/min BUN/Creatinine Ratio (10-20) Glucose (70-99) mg/dl POC Glucose 153 H 135 H 190 H (70-99) mg/dl Calcium (8.5-10.1) mg/dl COVID-19 Eval Order SARS-CoV-2, RNA, NAAT (NEGATIVE) 04/26/21 04/26/21 04/26/21 Range/Units 06:05 06:05 06:37 WBC 7.60 (4.8-10.8) K/uL RBC 3.63 L (4.2-5.4) M/uL Hgb 11.0 L (12.0-16.0) g/dL Hct 33.6 L (37-47) % MCV 92.6 (80-100) fL MCH 30.3 (25-34) pg MCHC 32.7 (32-36) g/dL RDW Std Deviation 45.9 (36.4-46.3) fL RDW Coeff of Sue 13.4 (11.5-14.5) % Plt Count 196 (130-400) K/uL MPV 9.2 (7.4-10.4) fL Sodium 138 (136-145) mmol/L Potassium 3.9 (3.5-5.1) mmol/L Chloride 106 (98-107) mmol/L Carbon Dioxide 28 (21-32) mmol/L Anion Gap 4.0 (3-11) BUN 12 (7-18) mg/dl Creatinine 0.47 L (0.6-1.2) mg/dl Est Cr Clr Drug Dosing 147.7 ml/min Est GFR ( Amer) 120.1 ml/min Est GFR (Non-Af Amer) 103.7 ml/min BUN/Creatinine Ratio 24.7 H (10-20) Glucose 156 H (70-99) mg/dl POC Glucose 158 H (70-99) mg/dl Calcium 8.4 L (8.5-10.1) mg/dl COVID-19 Eval Order SARS-CoV-2, RNA, NAAT (NEGATIVE) Total Time Total Time Spent Total Time Spent (In Minutes): 20 Discharge Plan Discharge Items Patient Disposition: Home - Home Health Services Reason For Visit: Unilateral Primary Osteoarthritis Knee Left Discharge Diagnosis: Left knee osteoarthritis Activity: Per Instructions section Weightbearing: Left weightbearing Weightbearing Comment: As tolerated with walker Non-emergency contact: Surgeon Call non-emergency contact if: you have any medication questions, your pain is not controlled, your temperature is above 101.5, your wound has increased redness and your wound has increased drainage Follow-up/Referrals: Adri Myers CRNP [Primary Care Provider] - Diet: Regular Addtl Attending Provider Instructions: ACTIVITY RECOMMENDATIONS: SELF CARE INSTRUCTIONS AFTER TOTAL KNEE REPLACEMENT A. You may need to continue a physical therapy program after discharge from the hospital. There are several options available to you. Your doctor will assist you in selecting the best one for you. 1. An out-patient facility 2 to 3 times a week for therapy or home therapy. 2. Continue working on all exercises taught to you in the hospital. Your goals should be to increase bending of your knee to 90 degrees and beyond and to fully straighten your knee. B. You may progress at your own pace from walking with a walker or crutches to a cane; then to no assistive devices. C. Make walking a part of your daily routine. Be up as much as comfortable with rest periods throughout the day. Rest with leg elevation is very important. Use the ice wrap frequently for the first 3-4 weeks. D. There are no restrictions on activities. You may ride in a car, shop, participate in picker feeder and all social activities. E. Wear the long elastic stockings (ANGELA hose) 20 hours a day for 2 weeks after surgery. They can be removed several times a day for laundering and for a bath. F. You may shower, no tub baths until cleared by your doctor. SPECIAL CARE INSTRUCTIONS: VERY IMPORTANT TO READ AND REVIEW A. There are a few signs you need to watch for after you are home. Call [facility] if you notice any of the followin. Increased severe knee pain. Some pain is expected especially when you e xercise. 2. Increased swelling in your leg or knee; pain or swelling of the calf muscle in either lower leg. 3. Any fluid drainage from the incision. 4. Shortness of breath or chest pain. B. Please call [facility] at if you have any concerns or questions about your operation or recovery. The doctor or his nurse will return your call promptly. C. You must take antibiotics before dental work, bladder, bowel or other surgery. Your doctor will provide you with a permanent care to carry describing this precaution. IMPORTANT: * REMEMBER TO TAKE ASPIRIN, 81 MG, TWICE DAILY FOR 4 WEEKS UNLESS OTHERWISE DIRECTED. THIS IS YOUR BLOOD THINNER. * HIGH RISK PATIENTS MAY BE PRESCRIBED A STRONGER BLOOD THINNER. THIS WILL BE PROVIDED AT DISCHARGE. * CALL IF INCREASED PAIN, REDNESS, DRAINAGE OR FEVER GREATER THAT 101. * WEAR ANGELA HOSE 20 HOURS PER DAY FOR 2 WEEKS. This is a mesh tape dressing that is covered with glue. It should remain in place until the incision is properly healed, usually 10-14 days. This dressing is designed to naturally slough off. You may trim the excess mesh tape as it peels off. Incision may be briefly wet in a shower. Dry immediately by blotting with a clean, dry towel. Do not bath or swim until instructed by your doctor. Do not scratch, rub, or pick at the dressing. Do not apply any topical ointments or lotions until dressing is completely removed and/or instructed by your doctor. There may be a small piece of suture material at one end of your incision. Do not pull or trim this. If it is bothersome or catching on clothing, you may cover it with a band-aid. IF INCISION IS LEAKING THROUGH DRESSING, CALL THE OFFICE . FOLLOW UP VISIT: If appointment is not already scheduled: Please call [facility] to make a follow-up appointment for 2 weeks after your surgery at . Pending Studies at Discharge: No Stand-Alone Forms: My [facility] [employer], Smoking Cessation Medications and DC Order Prescriptions: New celecoxib [Celebrex] 200 mg Capsule 200 mg PO BID 30 Days Qty: 60 RF: 0 aspirin 81 mg Tablet,Delayed Release (Dr/Ec) 81 mg PO BID 30 Days Qty: 60 RF: 0 acetaminophen [Tylenol Extra Strength] 500 mg Tablet 1,000 mg PO Q8 30 Days Qty: 180 RF: 0 oxycodone 5 mg Tablet 5 - 10 mg PO Q4H PRN (Reason: pain) Qty: 30 RF: 0 sennosides [Senokot] 8.6 mg Tablet 17.2 mg PO HS PRN (Reason: constipation) 30 Days Qty: 60 RF: 0 Continued atorvastatin [Lipitor] 40 mg Tablet 40 mg PO PM RF: 0 levothyroxine 75 mcg Tablet 75 mcg PO QAM RF: 0 ropinirole 0.5 mg Tablet 0.5 mg PO PM RF: 0 furosemide [Lasix] 20 mg Tablet 20 mg PO DAILY PRN (Reason: Edema) RF: 0 [id number]-[id number] Tablet 1 tab PO QAM RF: 0 escitalopram oxalate [Lexapro] 20 mg Tablet 20 mg PO QAM RF: 0 turmeric 400 mg Capsule 400 mg PO QAM RF: 0 Calcium 600 + D(3) 1 tab PO QAM RF: 0 metformin 500 mg Tablet 500 mg PO QDB RF: 0 metformin 500 mg Tablet 1,000 mg PO QDD RF: 0 Discontinued meloxicam 15 mg Tablet 15 mg PO QAM RF: 0 acetaminophen [Tylenol Arthritis] 650 mg Tablet Extended Release 650 mg PO DAILY RF: 0 Discharge Orders: Discharge Order (Routine); Ordered 04/26/21 Ordered By: Samantha Forrester Admission Data Admit Date/Time: 04/24/21 17:35 Attending Provider: Adonis Rowan Admit Provider: Adonis Rowan Primary Care Provider: Adri Myers Other Providers: Maximilian Quick ; [facility] Other Interventions: Discharge Summary Assessment (RN) Last Done: 04/26/21 11:32
== END 2021-04-26 12:51 | disposition home health service (06) ==
LOC: 3E 11:27 → ASU 11:27